=== PATIENT | female | born 1945 | race Caucasian/White ===

== ENCOUNTER → 2020-07-28 10:56 | Outpatient (CLI) | payer MEDICARE, SELFPAY ==
--- NOTE | ~2020-07-28 | MM_ITS ---
EXAMINATION: MM screening [facility] BI w jose HISTORY: Screening mammogram TECHNIQUE: Craniocaudal and mediolateral oblique 3-D tomosynthesis images were obtained and synthetic 2-D images were generated. CAD analysis was submitted and interpreted. COMPARISON: 12/27/2017, 01/12/2016, 11/13/2013 BREAST PARENCHYMAL COMPOSITION: There are scattered areas of fibroglandular density. FINDINGS: There is no evidence of suspicious mass, calcification, or architectural distortion to sugg est malignancy in either breast. There has been no suspicious interval change. IMPRESSION: 1. No mammographic evidence of malignancy. 2. Recommend routine screening mammography in one year. BI-RADS Category 1: Negative Reviewed, dictated and finalized at location A.
--- NOTE | ~2020-07-28 | DEXA_ITS ---
Bone Density Report Name: Arcelia Andrade Age: 75 Sex: Female Ethnicity: White Date of : 1945 Indication: postmenopausal; screening for osteoporosis; parental hip fracture; height loss; hysterectomy; Referring Provider: RAHEL, FUNMILAYO Mac Study: Bone densitometry was performed. Exam Date: July 28, 2020 Accession number: [id number] Bone Density: Region BMD T-score Z-score Classification AP Spine (L1-L4) 1.282 2.1 4.5 Normal Femoral Neck (Left) 0.772 -0.7 1.4 Normal Total Hip (Left) 0.933 -0.1 1.7 Normal Femoral Neck (Right) 0.735 -1.0 1.0 Normal Total Hip (Right) 0.871 -0.6 1.2 Normal Total Hip Mean 0.902 -0.4 1.5 Normal World Health Organization criteria for BMD impression classify patients as: Normal (T-score at or above -1.0), Osteopenia (T-score between -1.0 and -2.5), or Osteoporosis (T-score at or below -2.5). 10-year Fracture Risk: FRAX not reported because: All T-scores for Spine Total, Hip Total, Femoral Neck at or above -1.0 Previous Exams: Region Exam Age BMD T-score BMD Change BMD Change Date g/cm2 vs Baseline vs Previous AP Spine(L1-L4) 07/28/2020 75 1.282 2.1 0.017 0.017 02/24/2009 64 1.265 2.0 0.000 0.000 01/19/2006 60 1.265 2.0 Total Hip(Left) 07/28/2020 75 0.933 -0.1 -0.072 -0.084 02/24/2009 64 1.017 0.6 0.012 0.012 01/19/2006 60 1.005 0.5 Total Hip(Right) 07/28/2020 75 0.871 -0.6 -0.021 -0.021 02/24/2009 64 0.893 -0.4 0.000 0.000 01/19/2006 60 0.892 -0.4 *Denotes significance at 95% confidence level, LSC for AP Spine = 0.022 g/cm2, LSC for Total Hip = 0.027 g/cm2 Clinical Information Provided by Patient: Parent has had a hip fracture Has used the following medications: Vitamin D Has the following medical conditions: Hysterectomy Patient maximum height was 68 Menopause Age: 53 Drinks caffeinated beverages Onset of menses at age 14 Number of children 4 Impression: The patient has normal bone mass. The patient has risk factors, including: parental hip fracture. No significant bone loss was observed. Discussion: BONE DENSITY IS ABOVE THE MINIMUM DESIRABLE LEVEL AT ALL SKELETAL SITES TESTED. This patient?s bone mineral density is above the minimum desirable level (T-score -1.0 or better) at all sites measured. The patient should follow a healthful lifestyle (goo
== END ==
PROVIDERS: PCP Internal Medicine; Visit Provider Internal Medicine
DX: Z12.31 Encounter for screening mammogram for malignant neoplasm of breast (principal); Z13.820 Encounter for screening for osteoporosis; Z78.0 Asymptomatic menopausal state
CPT/HCPCS: 77063; 77067; 77080

== ENCOUNTER 2021-10-29 01:45 | Day surgery (SDC) | payer MEDICARE, SELFPAY ==
[2021-10-16 11:22] VITALS: BMI 33.7
--- NOTE | 2021-10-28 13:45 | PM.HPGS ---
History of Present Illness History of Present Illness Consent: Risks, benefits, and alternatives have been discussed and questions answered. Patient agrees to proceed with procedure. Chief complaint: hx of colon polyps Narrative: Arcelia Andrade is a 76 year old female referred for colon cancer screening. She has had polyps removed in the past . Her last colonoscopy was 5 years ago. Review of Systems Review of Systems: All systems reviewed & are unremarkable except as noted in HPI and below PMFSH Past Medical History Medical History Chronic GERD HTN (hypertension) Hyperlipidemia Obesity Social History Social History Smoking status: Never smoker Substance use type: does not use Living arrangements: alone Spiritual care concerns: No Meds Home Medications and Allergies Home Medications Medication Instructions Recorded Confirmed Type amlodipine 5 mg tablet 5 mg PO DAILY 10/16/21 10/16/21 History cholecalciferol (vitamin D3) 25 25 mcg PO DAILY 10/16/21 10/16/21 History mcg (1,000 unit) tablet (Vitamin D3) docusate sodium 100 mg capsule 100 mg PO BID 10/16/21 10/16/21 History famotidine-Ca carb-mag hydrox 10 1 tablet PO DAILY PRN Indigestion 10/16/21 10/16/21 History mg-800 mg-165 mg chewable tablet (Pepcid Complete) hydrochlorothiazide 12.5 mg capsule 12.5 mg PO DAILY 10/16/21 10/16/21 History multivitamin with minerals-folic 1 tablet PO DAILY 10/16/21 10/16/21 History acid 0.4 mg tablet omega 9-mzf-nxa-fish oil 300 1 cap PO DAILY 10/16/21 10/16/21 History mg-1,000 mg capsule (Fish Oil) simvastatin 20 mg tablet 20 mg PO DAILY 10/16/21 10/16/21 History Allergies Allergy/AdvReac Type Severity Reaction Status Date / Time cephalexin [From Keflex] Allergy Other Verified 10/29/21 08:15 Exam Const: General: alert Orientation/consciousness: patient oriented x3 Resp: Auscultation: clear to auscultation bilaterally Cardio: Rhythm: regular rhythm GI: GI Palp: Yes Soft to palpation and No Tenderness to palpation present (GI) Neuro: General: patient oriented x3 Assessment and Plan Assessment and plan (1) Colon cancer screening: Code(s): Z12.11 - Encounter for screening for malignant neoplasm of colon Status: Acute Assessment and Plan: Colonoscopy with possible biopsy or polypectomy or cautery or injection of substances.
[2021-10-29 08:16] VITALS: BP 166/75; PULSE 80; RESP 18; TEMP 35.9; O2SAT 97; BMI 34.4
--- NOTE | 2021-10-29 08:22 | P.PNAN_ITS ---
Anes - Initial Pre Proc Eval Procedure: Operation Date: 10/29/21 09:30 Proposed Procedures p Screening Colonoscopy - Felice Rojas MD Date/Time: 10/29/21 08:22 Surgeon: Felice Rojas MD Pre Op Diagnosis: hx of colon polyps Patient Data Age: 76 Gender: F Height: 1.68 m Weight: 96.9 kg Last Vital Signs Temp 35.9 C L 10/29/21 08:16 Pulse 80 10/29/21 08:16 Resp 18 10/29/21 08:16 BP 166/75 H 10/29/21 08:16 Pulse Ox 97 10/29/21 08:16 O2 Del Method Room Air 10/29/21 08:16 Allergies Allergy/AdvReac Type Severity Reaction Status Date / Time cephalexin [From Keflex] Allergy Other Verified 10/29/21 08:15 Home Medications Medication Instructions Recorded Confirmed Type amlodipine 5 mg tablet 5 mg PO DAILY 10/16/21 10/16/21 History cholecalciferol (vitamin D3) 25 25 mcg PO DAILY 10/16/21 10/16/21 History mcg (1,000 unit) tablet (Vitamin D3) docusate sodium 100 mg capsule 100 mg PO BID 10/16/21 10/16/21 History famotidine-Ca carb-mag hydrox 10 1 tablet PO DAILY PRN Indigestion 10/16/21 10/16/21 History mg-800 mg-165 mg chewable tablet (Pepcid Complete) hydrochlorothiazide 12.5 mg capsule 12.5 mg PO DAILY 10/16/21 10/16/21 History multivitamin with minerals-folic 1 tablet PO DAILY 10/16/21 10/16/21 History acid 0.4 mg tablet omega 8-xta-ewi-fish oil 300 1 cap PO DAILY 10/16/21 10/16/21 History mg-1,000 mg capsule (Fish Oil) simvastatin 20 mg tablet 20 mg PO DAILY 10/16/21 10/16/21 History Patient hx anesthesia problems: none Family hx anesthesia problems: none Results Review: All pre-operative results and documents have been reviewed as part of the pre- operative evaluation. [facility] Past Medical History Medical History (Updated 10/29/21 @ 08:23 by Pernell Mejia MD) Chronic GERD HTN (hypertension) Hyperlipidemia Obesity Social History Social History Smoking status: Never smoker Substance use type: does not use Living arrangements: alone Spiritual care concerns: No Anes - Eval Final PreProcedure Day of Procedure 10/29/21 08:22 Patient weight: obese Heart: regular rate and rhythm Lungs: clear to auscultation and normal air movement Airway: Mallampati scale class II Neurological: alert and oriented Last oral intake: >/= 8 hours ASA classification: III Emergent: no Anesthetic plan: proceed Anesthesia type and monitoring: general GIVS Results Review: All pre-operative results and documents have been reviewed as part of the pre- operative evaluation. Informed Consent: The patient's anesthetic plan and its attendant risks and benefits were discussed with the patient/family/POA. Questions were solicited and answers provided to the satisfaction of the patient/family/POA.
[2021-10-29] MEDS: LACTATED RINGERS 1,000 ML 150 ML IV CONT (08:29)
[2021-10-29 09:47] VITALS: BP 147/79; PULSE 66; RESP 22; O2SAT 99
[2021-10-29 09:57] VITALS: BP 161/84; PULSE 69; RESP 20; O2SAT 99
[2021-10-29 10:07] VITALS: BP 162/71; PULSE 65; RESP 19; O2SAT 100
== END 2021-10-29 10:13 | disposition home or self-care (01) ==
PROVIDERS: PCP Internal Medicine; Visit Provider Internal Medicine Gastroenterology
PROC: 0DJD8ZZ Inspection of Lower Intestinal Tract, Via Natural or Artificial Opening Endoscopic (ICD-10-PCS; CPT 45378; principal; 2021-10-29 09:30)
DX: Z12.11 Encounter for screening for malignant neoplasm of colon (principal); K57.30 Diverticulosis of large intestine without perforation or abscess without bleeding; D12.0 Benign neoplasm of cecum; K62.1 Rectal polyp; I10 Essential (primary) hypertension; E78.5 Hyperlipidemia, unspecified; K21.9 Gastro-esophageal reflux disease without esophagitis; E66.9 Obesity, unspecified; Z68.34 Body mass index [BMI] 34.0-34.9, adult
CPT/HCPCS: 45380; 88305; J2704; J7120

== ENCOUNTER → 2021-11-23 15:16 | Outpatient (CLI) | payer MEDICARE, SELFPAY ==
--- NOTE | ~2021-11-23 | US_ITS ---
US renal BI 11/23/2021 15:36 Procedure: Realtime transabdominal ultrasound of the kidneys and bladder. Indication: Chronic kidney disease stage III Comparison: No prior studies for comparison. Findings: Renal echotexture is normal bilaterally without hydronephrosis, contour deforming mass or r enal calculus. The right kidney measures 8.5 cm and left kidney measures 9.1 cm. Bladder within norm al limits. Impression: 1: Unremarkable renal ultrasound. No stones, masses or hydronephrosis. Reviewed, dictated and finalized at location B. Impression: 1: Unremarkable renal ultrasound. No stones, masses or hydronephrosis.
== END ==
PROVIDERS: PCP Internal Medicine; Visit Provider Internal Medicine Nephrology
DX: N18.31 Chronic kidney disease, stage 3a (principal)
CPT/HCPCS: 76775

== ENCOUNTER 2022-09-23 11:27 | Emergency (ER) | payer MEDICARE, SELFPAY ==
[2022-09-23] VITALS (21 sets, daily range): BP systolic 155–214; BP diastolic 64–81; PULSE 70–84; RESP 12–19; TEMP 36.6; O2SAT 95–100
--- NOTE | ~2022-09-23 | CT_ITS ---
EXAMINATION: CTA brain carotid DATE: 09/23/2022 13:48 INDICATION: Dizziness. Unsteady gait. TECHNIQUE: Computed tomographic angiography (CTA) of the head was performed with 100 mL Omnipaque-350 intravenous contrast. CTA of the neck was performed with intravenous contrast. Automated exposure co ntrol and iterative reconstruction technique were employed. The dose-length product was 1180.35 mGy-c m. Maximum intensity projection and volume rendered 3D-reconstructions were created by the technrauli on a separate workstation. COMPARISON: Head CT 09/23/2022 FINDINGS: HEAD CTA: There are scattered areas of low attenuation in the cerebral white matter. There is no intr acranial hemorrhage, acute infarction, or abnormal intracranial mass lesion. The ventricles are gallo l in size. The mastoid air cells are normal. The paranasal sinuses are clear. The orbits are normal. Left vertebral artery is dominant. There is no significant stenosis of basilar artery or the posterio r cerebral arteries. The posterior communicating arteries are normal. There is no significant stenosi s of the intracranial internal carotid arteries or anterior or middle cerebral arteries. 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 There is a 2 mm saccular aneurysm of the cave rnous left internal carotid artery. NECK CTA: There are no pathologically enlarged lymph nodes. There is a 5 mm nodule in the thyroid, li hugh not clinically significant. There is no significant stenosis of the vertebral arteries. There is plaque in the proximal internal carotid arteries. There is 0% stenosis of the proximal right interna l carotid artery relative to normal distal artery lumen diameter (NASCET criteria). There is 15% sten osis of the proximal left internal carotid artery relative to normal distal artery lumen diameter. Th ere is severe cervical spondylosis. IMPRESSION: 1. Mild nonspecific cerebral white matter disease, which likely represents chronic small vessel ische justina disease. 2. 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 3. 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 4. 0% stenosis of the proximal right internal carotid artery relative to normal distal artery lumen d iameter (NASCET criteria). 5. 15% stenosis of the proximal left internal carotid artery relative to normal distal artery lumen d iameter. Reviewed, dictated and finalized at location A. IMPRESSION: 1. Mild nonspecific cerebral white matter disease, which likely represents bridal service sales and management epi small vessel ischemic disease. 2. 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 3. 2 mm saccular aneurysm of left cavernous segment of left internal carotid ar nadia. 4. 0% stenosis of the proximal right internal carotid artery relative to normal distal artery lumen diameter (NASCET criteria). 5. 15% stenosis of the proximal left internal carotid artery relative to normal distal artery lumen diameter.
--- NOTE | ~2022-09-23 | CT_ITS ---
EXAMINATION: CT BRAIN W/O DATE: 09/23/2022 11:53 INDICATION: Hypertension. Dizziness. TECHNIQUE: Computed tomography (CT) of the head was performed without intravenous contrast. The dose- length product was 605.33 mGy-cm. Automated exposure control and iterative reconstruction technique w ere employed. COMPARISON: No prior studies for comparison. FINDINGS: Normal brain parenchymal volume for age. Normal mijares-white differentiation. No acute intrac ranial hemorrhage, infarction, mass or mass effect. There are scattered mild periventricular and subc ortical white matter changes, most likely related to small vessel ischemic disease (microangiopathy). No ventriculomegaly or midline shift. Midline sagittal images demonstrate a normal corpus callosum, c raniovertebral junction and sella turcica. Basilar cisterns are patent. Paranasal sinuses and mastoids are pneumatized. No depressed skull fractures. IMPRESSION: 1. No acute intracranial abnormality. Reviewed, dictated and finalized at location L.
--- NOTE | ~2022-09-23 | XR_ITS ---
EXAMINATION: XR chest 1V portable DATE: 09/23/2022 12:17 INDICATION: Syncope. TECHNIQUE: A single frontal view of the chest was obtained. COMPARISON: Chest 2 views 01/25/2007 FINDINGS: The patient rotated to her right. There is marked elevation of right hemidiaphragm. There i s mild atelectasis at right lung base. No pleural effusion or pneumothorax. The heart size is normal. IMPRESSION: 1. Marked elevation of right hemidiaphragm with mild atelectasis at right lung base. Reviewed, dictated and finalized at location A.
--- NOTE | 2022-09-23 11:44 | ECG_ITS ---
Measurements Intervals [place] Rate: 75 P: 58 IA: 133 QRS: -29 QRSD: 104 T: 67 QT: 390 QTc: 436 Interpretive Statements SINUS RHYTHM POSSIBLE LEFT ATRIAL ENLARGEMENT [-0.1mV P WAVE IN V1/V2] POSSIBLE LEFT VENTRICULAR HYPERTROPHY [VOLTAGE CRITERIA PLUS LAE OR QRS WIDENING] LATERAL MYOCARDIAL INFARCTION , OF INDETERMINATE AGE [40+ ms Q WAVE AND/OR ST/T ABNORMALITY IN I/aVL/V5/V6] NO PREVIOUS ECG AVAILABLE FOR COMPARISON Electronically Signed On 09-23-2022 14:05:49 CDT by Jesus Mcnulty M.D.
[2022-09-23 12:03] LABS: Glucose Point of Care 145 mg/dl (65-105)
[2022-09-23 12:18] LABS: Basophils Absolute Auto 0.1 K/mm3 (0.0-0.1); Basophils Percent Auto 0.7 % (0.2-1.2); Eosinophils Absolute Auto 0.1 K/mm3 (0-0.3); Eosinophils Percent Auto 1.4 % (0-4.4); Hematocrit 43.6 % (37.0-47.0); Hemoglobin 14.4 g/dL (12.0-15.0); Immature Granulocyte Absolute 0.02 K/mm3 (0.00-0.031); Immature Granulocyte Percent A 0.2 % (0-0.5); Lymphocytes Absolute Auto 1.97 K/mm3 (0.9-3.2); Lymphocytes Percent Auto 24.4 % (18.3-44.2); Mean Corpuscular Hemoglobin 30.9 pg (26-34); Mean Corpuscular Volume 93.6 fl (80-100); Monocytes Absolute Auto 0.6 K/mm3 (0.1-0.6); Monocytes Percent Auto 6.8 % (2.6-8.5); Neutrophils Absolute Auto 5.4 K/mm3 (1.3-6.7); Neutrophils Percent Auto 66.5 % (45.5-73.1); Platelet Count Result 223 k/mm3 (150-375); Red Blood Count 4.66 M/mm3 (4.2-5.4); Red Cell Distribution Width 13.3 % (11.5-14.5); White Blood Count 8.1 K/mm3 (4.5-10.0)
[2022-09-23 12:30] LABS: INR 0.9; Prothrombin Time 12.7 Seconds (11.1-14.7)
[2022-09-23 12:36] LABS: Alanine Aminotransferase 36 U/L (6-35); Albumin Level 4.6 g/dL (3.5-5.1); Alkaline Phosphatase 84 U/L (38-126); Anion Gap 6 mmol/L (8-16); Aspartate Amino Transferase 37 U/L (14-36); Bilirubin,Total 0.5 mg/dL (0.2-1.3); Blood Urea Nitrogen 15 mg/dL (7-17); Calcium 9.3 mg/dL (8.4-10.2); Carbon Dioxide 30 mmol/L (22-30); Chloride 101 mmol/L (98-107); Estimated CRCL calculation 51 ml/min; Estimated Glomerular Filt Rate 54; Glucose 133 mg/dL (65-110); Sodium 137 mmol/L (137-145)
[2022-09-23 12:47] LABS: Troponin I < 0.012 ng/mL (0.000-0.034)
--- NOTE | 2022-09-23 13:55 | ED.DIZZY ---
HPI - Dizziness General Chief Complaint: Dizziness Stated Complaint: dizzy Time Seen by Provider: 09/23/22 12:56 Source: patient, RN notes reviewed and old records reviewed Mode of arrival: ambulatory Limitations: no limitations History of Present Illness HPI Narrative: This is a 77 year old female with history of hypertension and chronic renal disease who presents for evaluation of dizziness. Patient states she was at Physical therapy doing exercises. She reports the therapy asked her to get up and move and she developed dizziness when getting up. She states she felt off and she reports tingling to around her lips and tingling to her fingers. She denies spinning sensation, blurred vision or diplopia. She reports she felt like she was unsteady with walking. She states this occurred around 845-900 am this morning. She called her daughter and they went to get food to see if this helped her symptoms. She still did not feel right so they went to urgent care. She was referred to ER. She denies having any symptoms now. She denies focal weakness, difficulty with speech. She reports mild headache now. She denies chest pain, shortness of breath. Related Data Home Medications Medication Instructions Recorded Confirmed amlodipine 5 mg tablet 5 mg PO DAILY 10/16/21 08/16/22 cholecalciferol (vitamin D3) 25 25 mcg PO DAILY 10/16/21 08/16/22 mcg (1,000 unit) tablet (Vitamin D3) docusate sodium 100 mg capsule 100 mg PO BID 10/16/21 08/16/22 multivitamin with minerals-folic 1 tablet PO DAILY 10/16/21 08/16/22 acid 0.4 mg tablet omega 5-ryq-tht-fish oil 300 1 cap PO DAILY 10/16/21 08/16/22 mg-1,000 mg capsule (Fish Oil) simvastatin 20 mg tablet 20 mg PO DAILY 10/16/21 08/16/22 esomeprazole magnesium 40 mg 40 mg PO DAILY 05/17/22 08/16/22 capsule,delayed release hydrochlorothiazide 12.5 mg capsule 12.5 mg PO DAILY 08/16/22 08/16/22 lisinopril 40 mg tablet 40 mg PO DAILY 08/16/22 08/16/22 Allergies Allergy/AdvReac Type Severity Reaction Status Date / Time cephalexin [From Keflex] Allergy Other Verified 08/16/22 09:20 Review of Systems Constitutional: Constitutional: Denies weakness Cardiovascular: Cardiovascular: Denies syncope, Denies rapid heart rate, Denies irregular heart rhythm, Denies leg edema and Denies dyspnea Respiratory: Respiratory: Denies chest congestion, Denies hemoptysis, Denies excessive phlegm production and Denies dyspnea Gastrointestinal: Gastrointestinal: Denies abdominal pain, Denies hematochezia, Denies diarrhea and Denies vomiting Genitourinary: Genitourinary: Denies hematuria and Denies dysuria Musculoskeletal: Musculoskeletal: Denies joint swelling, Denies loss of height and Denies muscle weakness Neurologic: Reports dizziness, Denies syncope, Reports headache(s), Denies focal weakness and Denies weakness PMFSH Past Medical History Medical History Chronic GERD HTN (hypertension) Hyperlipidemia Obesity Social History Social History Smoking status: Never smoker Substance use type: does not use Lack of Transportation: No Lack of Food: Never True Current Housing: I Have Housing Concerned About Future Housing: No Difficulty Paying Gas/Electric Bills: No Difficulty Paying for Meds: No Currently Unemployed: No Education: Master's Degree or Higher Living arrangements: alone Gender identity (if verbalized by the patient): Female Spiritual care concerns: No Exam Narrative: GENERAL: Well-appearing, well-nourished, and in no acute distress. HEAD: Normocephalic, atraumatic EYES: PERRLA and EOMI, conjunctiva clear without discharge EARS: TM's clear bilaterally without erythema or dullness NOSE: Nares clear, no rhinorrhea or epistaxis THROAT:Mucous membranes moist, Oropharynx normal without erythema, exudate, peritonsillar swelling or fluctuance NEC
--- NOTE | 2022-09-23 14:51 | PC.NURSE ---
Pt ambulated without any difficulty, denies any dizziness
[2022-09-23] MEDS: amLODIPine BESYLATE 5 MG TABLET PO (15:53)
== END 2022-09-23 18:00 | disposition short-term general hospital (02) ==
PROVIDERS: Emergency Provider General Practice; PCP Internal Medicine
DX: I67.1 Cerebral aneurysm, nonruptured (principal); I12.9 Hypertensive chronic kidney disease with stage 1 through stage 4 chronic kidney disease, or unspecified chronic kidney disease; R42 Dizziness and giddiness; N18.9 Chronic kidney disease, unspecified; K21.9 Gastro-esophageal reflux disease without esophagitis; E78.5 Hyperlipidemia, unspecified; E66.9 Obesity, unspecified; Z68.34 Body mass index [BMI] 34.0-34.9, adult; R94.31 Abnormal electrocardiogram [ECG] [EKG]; R90.82 White matter disease, unspecified
CPT/HCPCS: 36415; 70450; 70496; 70498; 71045; 80053; 82948; 84484; 85025; 85610; 85730; 93005; 99285; A9270; Q9967

== ENCOUNTER → 2022-10-04 09:17 | Outpatient (CLI) | payer MEDICARE, SELFPAY ==
--- NOTE | ~2022-10-04 | US_ITS ---
EXAMINATION: US retroperitoneal duplex ltd DATE: 10/04/2022 09:38 INDICATION: Atherosclerosis of renal artery TECHNIQUE: Multiple grayscale, color Doppler, and pulsed Doppler images of the kidneys and renal miguel brenda were obtained. COMPARISON: None. FINDINGS: The aorta peak systolic velocity is 81 cm/s. The right renal artery peak systolic velocity is 93 cm/s in the proximal segment, 75 cm/s in the mid segment, and 58 cm/s in the distal segment. The left sincere al artery peak systolic velocity is 126 cm/s in the proximal segment, 118 cm/s in the mid segment, an d 92 cm/s in the distal segment. IMPRESSION: 1. No Doppler evidence of renal artery stenosis. Reviewed, dictated and finalized at location A.
== END ==
PROVIDERS: PCP Internal Medicine Nephrology; Visit Provider Internal Medicine
DX: I70.1 Atherosclerosis of renal artery (principal)
CPT/HCPCS: 93976

== ENCOUNTER 2024-02-17 13:56 | Outpatient (CLI) | payer MEDICARE, SELFPAY ==
--- NOTE | ~2024-02-17 | MM_ITS ---
EXAMINATION: MM screening [facility] BI w jose HISTORY: Screening TECHNIQUE: Craniocaudal and mediolateral oblique 3-D tomosynthesis images were obtained and synthetic 2-D images were generated. CAD analysis was submitted and interpreted. COMPARISON: Comparison to multiple prior studies sequentially, with oldest reviewed study dated 06/2015. BREAST PARENCHYMAL COMPOSITION: Not dense: There are scattered areas of fibroglandular density. FINDINGS: There is no evidence of suspicious mass, calcification, or architectural distortion to sugg est malignancy in either breast. There has been no suspicious interval change. IMPRESSION: 1. No mammographic evidence of malignancy. 2. Recommend routine screening mammography in one year. BI-RADS Category 1: Negative Reviewed, dictated and finalized at location B. [employer]
== END 2024-02-17 13:57 | disposition home or self-care (01) ==
PROVIDERS: PCP Internal Medicine; Visit Provider Internal Medicine
DX: Z12.31 Encounter for screening mammogram for malignant neoplasm of breast (principal)
CPT/HCPCS: 77063; 77067

== ENCOUNTER 2024-10-19 09:36 | Outpatient (CLI) | payer MEDICARE, SELFPAY ==
--- NOTE | ~2024-10-19 | DEXA_ITS ---
Bone Density Report Name: KUSH SAHU Age: 79 Sex: Female Ethnicity: White Date of : 1945 Indication: postmenopausal; screening for osteoporosis; parental hip fracture; hysterectomy; Referring Provider: RAHEL, FUNMILAYO Mac Study: Bone densitometry was performed. Exam Date: October 19, 2024 Accession number: [id number] Bone Density: Region BMD T-score Z-score Classification AP Spine(L1-L4) 1.196 1.4 4.0 Normal Femoral Neck (Left) 0.762 -0.8 1.5 Normal Total Hip (Left) 0.934 -0.1 1.9 Normal Femoral Neck (Right) 0.675 -1.6 0.7 Osteopenia Total Hip (Right) 0.853 -0.7 1.2 Normal Total Hip Mean 0.893 -0.4 1.6 Normal World Health Organization criteria for BMD impression classify patients as: Normal (T-score at or above -1.0), Osteopenia (T-score between -1.0 and -2.5), or Osteoporosis (T-score at or below -2.5). 10-year Fracture Risk(1): Major Osteoporotic Fracture 20% Hip Fracture 11% Reported Risk Factors: [place] (), Neck BMD=0.675, BMI=37.3, parental fracture (1) FRAX(R) Version 3.08. Fracture probability calculated for an untreated patient. Fracture probability may be lower if the patient has received treatment. Previous Exams: -- Region Exam Age BMD T-score BMD Change BMD Change Date g/cm2 vs Baseline vs Previous -- AP Spine (L1-L4) 10/19/2024 79 1.196 1.4 -5.5%* -6.7%# 07/28/2020 75 1.282 2.1 1.3%# 1.3%# 02/24/2009 64 1.265 2.0 0.0% 0.0% 01/19/2006 60 1.265 2.0 Total Hip(Left) 10/19/2024 79 0.934 -0.1 -7.1%* 0.1%# 07/28/2020 75 0.933 -0.1 -7.2%# -8.3%# 02/24/2009 64 1.017 0.6 1.2% 1.2% 01/19/2006 60 1.005 0.5 Total Hip(Right) 10/19/2024 79 0.853 -0.7 -4.5%* -2.2%# 07/28/2020 75 0.871 -0.6 -2.3%# -2.4%# 02/24/2009 64 0.893 -0.4 0.1% 0.1% 01/19/2006 60 0.892 -0.4 -- *Denotes significance at 95% confidence level, LSC for AP Spine = 0.022 g/cm2, LSC for Total Hip = 0.027 g/cm2 # Denotes dissimilar scan types or analysis methods Clinical Information Provided by Patient: Parent has had a hip fracture Has used the following medications: HRT (i.e. estrogen/hormone therapy), Vitamin D Has the following medical conditions: Hysterectomy Patient maximum height was 67 Menopause Age: 53 No regular weight bearing exercise Drinks caffeinated beverages Onset of menses at age 13 Number of children 4 Impression: The patient has low bone mass, based on the Right Femoral Neck T-score. The patient has an estimated ten-year risk of hip fracture of 11% and an estimated ten-year risk of major fracture of 20%, based on the WHO FRAX algorithm. The patient has risk factors, including: parental hip fracture. Unable to evaluate interval change due to the use of different scan modes. Discussion: BONE DENSITY IS LOW AT ONE OR MORE SKELETAL SITES. THE PATIENT'S BMD AND CLINICAL RISK FACTORS CONTRIBUTE TO THIS PATIENT'S HIGH RISK OF FRACTURE. This patient's lowest T-score is low at one or more skeletal sites. It meets the World Health Organization's (WHO) criteria for ?low bone mass? (T-score between -1.0 and -2.5). The patient's 10-year risk of hip fracture and 10 year risk of a major osteoporotic fracture as calculated by FRAX exceeds the threshold where pharmacological therapy is recommended by the National Osteoporosis Foundation (NOF). However, all treatment decisions require clinical judgment and consideration of individual patient factors, including patient preferences, comorbidities, previous drug use, risk factors not captured in the FRAX model (e.g., frailty, falls, vitamin D deficiency, increased bone turnover, interval significant decline in bone density) and possible under or overestimation of fracture risk by FRAX. The patient should follow a healthful lifestyle (good nutrition with adequate calcium and vitamin D, and appropriate weight-bearing exercise). Follow-Up: Consider a repeat BMD and Vertebral Fracture Assessment (VFA) exam in 2 years or sooner if medically necessary, to reassess this patient's status. Reported by: EDVIN on 10/19/2024 10:21:00 AM. Reviewed, dictated and finalized at location A.
== END 2024-10-19 09:37 | disposition home or self-care (01) ==
LOC: MICIMG 09:37
PROVIDERS: PCP Internal Medicine; Visit Provider Internal Medicine
DX: M85.851 Other specified disorders of bone density and structure, right thigh (principal)
CPT/HCPCS: 77080